=== PATIENT | female | born 1975 | race Caucasian/White ===

== ENCOUNTER 2023-04-02 10:14 | Outpatient (REF) | payer MEDICAID, SELFPAY ==
[2023-04-02 11:03] LABS: MANUAL DIFF FLAG NO
[2023-04-02 11:33] LABS: Basophils Percent Auto 0.6 % (0-2); Eosinophils Absolute Auto 0.1 X10*3/uL (0.0-0.4); Hematocrit 33.3 % (37.0-47.0); Hemoglobin 9.8 g/dl (12.0-16.0); Imm Gran Abs Auto 0.01 X10*3/uL (0.00-0.03); Imm Gran Pct Auto 0.2 % (0.0-0.4); Lymphocytes Absolute Auto 2.3 X10*3/uL (1.2-4.9); Lymphocytes Percent Auto 35.9 % (20-40); Mean Corpuscular HGB Conc 29.4 g/dl (31.0-35.0); Mean Corpuscular Hemoglobin 23.7 pg (27.0-33.0); Mean Corpuscular Volume 80.4 fL (80.0-98.0); Mean Platelet Volume 9.8 fL (9.4-12.3); Monocytes Absolute Auto 0.4 X10*3/uL (0.1-1.2); Neutrophils Absolute Auto 3.5 x10*3/uL (2.0-8.3); Neutrophils Percent Auto 55.3 % (45-73); Platelet Count 334 X10*3/uL (160-400); Red Blood Count 4.14 X10*6/uL (4.20-5.50); Red Cell Distribution Width 17.3 % (11.0-16.0); White Blood Count 6.3 X10*3/uL (4.8-10.8)
[2023-04-02 12:20] LABS: Erythrocyte Sedimentation Rate 26 MM/HR (0-20)
[2023-04-02 12:35] LABS: Alanine Aminotransferase 10 U/L (0-31); Albumin Level 4.2 g/dL (3.5-5.0); Alkaline Phosphatase 58 U/L (39-117); Anion Gap 13 (12-20); Aspartate Amino Transferase 17 U/L (5-31); Bilirubin Total 0.3 mg/dL (0.0-1.0); Blood Urea Nitrogen 12 mg/dL (9-16); Calcium 9.1 mg/dL (8.4-10.2); Carbon Dioxide 22 mmol/L (22-29); Chloride 107 mmol/L (96-108); Estimated Glomerular Filt Rate > 60; Glucose Random 82 mg/dL (60-115); Iron 18 mcg/dL (30-160); Percent Iron Saturation 5 % (15-50); Sodium 138 mmol/L (135-145); Total Iron Binding Capacity 398 mcg/dL (228-428); Total Protein 7.8 g/dL (6.5-8.0); Unsaturated Iron Binding 380 ug/dL
[2023-04-02 12:56] LABS: Rheumatoid Factor < 13.0 IU/mL (<15.0)
[2023-04-02 13:09] LABS: Vitamin B12 575 pg/mL (200-900)
[2023-04-05 14:48] LABS: Anti Nuclear Antibody Screen NEGATIVE (NEGATIVE)
[2023-04-08 13:54] LABS: VITAMIN D (1,25 OH) D3 45 pg/mL; Vit D (1,25-Dihydroxy) Total 45 pg/mL (18-72); Vitamin D (1,25 OH) D2 <8 pg/mL
== END 2023-04-02 10:15 | disposition home or self-care (01) ==
LOC: HO.HHCL 10:14
PROVIDERS: Visit Provider Emergency Medicine
DX: R42 Dizziness and giddiness (principal); M25.50 Pain in unspecified joint
CPT/HCPCS: 36415; 80053; 82607; 82652; 82746; 83540; 85025; 85652; 86038; 86431

== ENCOUNTER 2023-04-20 08:44 | Outpatient (REF) | payer MEDICAID, SELFPAY ==
[2023-04-20 11:56] LABS: Ferritin 15 ng/mL (10-250)
== END 2023-04-20 08:45 | disposition home or self-care (01) ==
LOC: HO.HHCL 08:44
PROVIDERS: Visit Provider Family Medicine
DX: D64.9 Anemia, unspecified (principal)
CPT/HCPCS: 36415; 82728

== ENCOUNTER 2023-05-11 09:57 | Outpatient (REF) | payer MEDICAID, SELFPAY ==
--- NOTE | ~2023-05-11 | MM_ITS ---
EXAMINATION: MM SCREENING DIGITAL BREAST TOMOSYNTHESIS, BILATERAL CLINICAL INFORMATION: Screening. Asymptomatic. COMPARISON: Mammography: This study is compared with prior exams dating back to 2016. TECHNIQUE: Digital breast tomosynthesis is performed in both the craniocaudal and mediolateral oblique views along with computer-aided detection (CAD). Synthesized 2D images are generated from the tomosynthesis. FINDINGS: The breasts are heterogeneously dense, which may obscure small masses (ACR BI-RADS breast composition Category c). In the upper outer quadrant of the left breast, there are grouped, faint calcifications. Some of these calcifications are vascular well others may not be. Further mammographic imaging with magnification is advised. In the right breast, there are no significant masses, abnormal calcifications, or other abnormalities. MM/MM tomosynthesis screening BI IMPRESSION: Faint, grouped calcifications of the upper outer quadrant of the left breast warrant additional mammographic imaging magnification. No mammographic signs of malignancy right breast. ASSESSMENT: BI-RADS BI-RADS 0 - Incomplete: Needs additional Imaging. RECOMMENDATION: 1. Additional views of the left breast. CC and lateral magnification imaging is advised. A full lateral view of the left breast with tomosynthesis is advised. Using tomosynthesis in the 90 degree projection can be helpful in assessing a potential vascular in origin for the calcifications. Radiology department staff will contact the patient for additional imaging. Additional Imaging required This examination should not preclude the clinical evaluation of a suspicious palpable abnormality. This patient's information was entered into a reminder system with a target due date for their next mammogram.
== END 2023-05-11 09:58 | disposition home or self-care (01) ==
LOC: HO.MAMMO 09:57
PROVIDERS: PCP Family Medicine; Visit Provider Family Medicine
DX: Z12.31 Encounter for screening mammogram for malignant neoplasm of breast (principal)
CPT/HCPCS: 77063; 77067

== ENCOUNTER → 2023-05-11 10:00 | Outpatient (BNV) | payer MEDICAID, SELFPAY | PROVIDERS: PCP Family Medicine; Visit Provider Radiology Diagnostic Radiology | DX: Z12.31 Encounter for screening mammogram for malignant neoplasm of breast (principal) | CPT/HCPCS: 77063; 77067 ==

== ENCOUNTER 2023-06-11 08:40 | Outpatient (REF) | payer MEDICAID, SELFPAY ==
--- NOTE | ~2023-06-11 | MM_ITS ---
EXAMINATION: MM DIAGNOSTIC DIGITAL BREAST TOMOSYNTHESIS, LEFT CLINICAL INFORMATION: Evaluate calcifications seen on screening mammography left breast upper outer quadrant. COMPARISON: Mammography: 05/11/2023, 04/13/2019, 09/04/2015. TECHNIQUE: Digital breast tomosynthesis is performed including 2-D spot magnification views of the left breast in the CC x2, and ML x3 positions. In addition, full-field left 90 degree 3-D digital image was obtained. FINDINGS: The breasts are heterogeneously dense, which may obscure small masses (ACR BI-RADS breast composition Category c). There are several small groups of very faint punctate calcifications in the left breast outer quadrant, with tiny groups noted anterior one third, mid one third, and a more significant grouping in the posterior one third upper outer quadrant. The anterior and middle thirds groups have benign features and may have been present on prior exams. Six-month follow-up recommended for these 3 groups. The larger group posteriorly in the outer upper quadrant of the left breast has mild pleomorphic forms with linear forms which do not appear to be vascular i.e. no transient tracking seen. These could be ductal. A few layering calcifications are seen suggesting milk of calcium. Despite this, given the linear possible ductal forms, stereotactic biopsy is recommended of this group. (Refer to the labeled images). Otherwise, six-month follow-up recommended for the anterior and mid groups. MM/MM tomosynthesis diagnostic LT IMPRESSION: Several groups of calcifications in the left breast predominantly outer quadrant as detailed above. Stereotactic biopsy recommended for the posterior most upper outer group, which is also the largest, with possible ductal forms. 6 month interval follow-up recommended of small benign appearing groups in the mid and anterior one third of the left breast, outer quadrant. These may have been present previously and have benign features. Findings and recommendations were discussed with the patient in detail with the assistance of a interpreter. ASSESSMENT: BI-RADS BI-RADS 4 - Suspicious finding RECOMMENDATION: Biopsy recommended Results were provided to the patient at time of visit by the technologist. This patient's information was entered into a reminder system with a target due date for their next mammogram.
== END 2023-06-11 08:41 | disposition home or self-care (01) ==
LOC: HO.MAMMO 08:40
PROVIDERS: PCP Family Medicine; Visit Provider Family Medicine
DX: R92.1 Mammographic calcification found on diagnostic imaging of breast (principal)
CPT/HCPCS: 77061; 77065

== ENCOUNTER → 2023-06-11 09:00 | Outpatient (BNV) | payer MEDICAID, SELFPAY | PROVIDERS: PCP Family Medicine; Visit Provider Radiology Diagnostic Radiology | DX: R92.1 Mammographic calcification found on diagnostic imaging of breast (principal) | CPT/HCPCS: 77061; 77065 ==

== ENCOUNTER 2023-06-14 08:16 | Outpatient (AMB) | payer MEDICAID, SELFPAY ==
[2023-06-14 08:27] VITALS: BP 130/69; PULSE 76; BMI 25.7
--- NOTE | 2023-06-14 08:27 | A.OFFVIS_ITS ---
Intake Vital Signs 06/14/23 08:27 Height 5 ft 3 in Weight 145 lb BMI 25.7 BP 130/69 Blood Pressure Location Rt brachial Position Sitting Pulse 76 Intake Visit Reasons: stereo Bx Lt breast calcs Intake Note: Patient referred for stereo bx for Lt breast calcifications on mammo. Denies bumps, lumps, redness, itch. No personal or family hx of breast ca. Cigar Tobacco Rehandler Required: No Accompanied by: Self / Same As Patient Allergies No Known Allergies Allergy (Mild, Unverified 06/14/23 08:30) NONE Medication List - Last Reconciled 06/14/23 by Santo Chavez MD ferrous sulfate 325 mg PO DAILY HPI HPI Comments History of Present Illness Details Patient presents for surgical evaluation for left breast microcalcifications stereotactic biopsy. Patient screening mammograms which demonstrate a several collections of microcalcifications. A posterior collection was suspicious and recommendation is for stereotactic biopsy per radiology Patient self has no breast issues or complaints. She denies any mass, discharge, skin changes or other breast symptoms. Family history negative breast cancer. PFSH Surgical History (Updated 06/14/23 @ 08:40 by Santo Chavez MD) Hx of section Family History (Updated 06/14/23 @ 08:33 by JAYDA House) Father Prostate CA Social History (Updated 06/14/23 @ 08:33 by JAYDA House) Alcohol intake: never Patient Tobacco Use Status: Never used Tobacco Physical Exam Vital Signs: Last Vital Signs Pulse 76 06/14/23 08:27 BP 130/69 06/14/23 08:27 BMI result Body Mass Index 25.7 Chest Other: Breast exam demonstrates no obvious mass discharge adenopathy or skin changes bilaterally. No cervical periclavicular or axillary adenopathy bilaterally. GI Other: Abdomen mildly corpulent, soft, benign Assessment & Plan Assessment & Plan (1) Microcalcification of left breast on mammogram: Code(s): R92.0 - Mammographic microcalcification found on diagnostic imaging of breast Plan: Patient is tentatively scheduled for stereotactic biopsy of left posterior microcalcifications for tomorrow. Patient will see me in proximal week [place] for follow-up. All questions were answered. Orders: Orders MM stereotactic biopsy LT 06/15/23 R92.0 - Mammographic microcalcification found on diagnostic imaging of breast Coding Level of Care Code New Pt Level 4 (32643) Diagnoses Microcalcification of left breast on mammogram R92.0
== END 2023-06-14 08:41 | disposition home or self-care (01) ==
PROVIDERS: PCP Family Medicine; Visit Provider Surgery
DX: R92.0 Mammographic microcalcification found on diagnostic imaging of breast (principal)
CPT/HCPCS: 99204

== ENCOUNTER → 2023-06-14 08:16 | Outpatient (BNVA) | payer MEDICAID, SELFPAY | PROVIDERS: PCP Family Medicine; Visit Provider Surgery | DX: R92.0 Mammographic microcalcification found on diagnostic imaging of breast (principal) | CPT/HCPCS: 99202 ==

== ENCOUNTER 2023-06-15 09:44 | Outpatient (REF) | payer MEDICAID, SELFPAY ==
--- NOTE | ~2023-06-15 | MM_ITS ---
EXAMINATION: STEREOTACTIC TOMOSYNTHESIS-GUIDED VACUUM-ASSISTED BREAST BIOPSY, LEFT SPECIMEN RADIOGRAPH, LEFT POST PROCEDURE DIGITAL MAMMOGRAM, LEFT CLINICAL INFORMATION: Suspicious calcifications upper outer left breast for stereotactic biopsy. COMPARISON: 06/11/2023, 05/11/2023. TECHNIQUE/PROCEDURE: Informed consent was obtained from the patient after discussion of the benefits, risks, and alternatives to biopsy today. Patient appeared to understand. Gave opportunity for questions. Patient signed consent form. BIOPSY TABLE: [employer] Affirm Prone Biopsy System. LESION: Microcalcifications, some with linear forms. Grouped and extremely subtle. LOCAL ANESTHESIA: 5 mL 1% lidocaine; 10 mL 1% lidocaine with epinephrine. DERMATOTOMY: Single skin fausto dermatotomy performed. NEEDLE: [employer] Eviva 9-gauge vacuum assisted core biopsy device. APPROACH: craniocaudal. TARGETING: Combination of digital breast tomosynthesis and stereotactic digital mammography used for targeting. CORES: 7. CLIP: [employer] Cylinder-shaped marker. SPECIMEN RADIOGRAPH: Specimen radiograph is taken in separate room using digital mammography. The index calcifications are in the excised cores. POST PROCEDURE UNILATERAL DIGITAL MAMMOGRAM: The post biopsy mammogram is performed in separate room using separate digital mammography equipment from the biopsy procedure. CC and 90 degree ML views are obtained. The breasts are heterogeneously dense, which may obscure small masses (breast composition category: c). The clip marker is in accurate position. The calcifications are markedly decreased at the biopsy site. No gross hematoma. The patient tolerated the procedure well. No immediate complications. Home instructions reviewed with the patient. Final pathology results are pending. MM/MM stereotactic biopsy LT IMPRESSION: 1. Digital tomosynthesis-guided core biopsy left breast suspicious calcifications with clip placement. 2. Specimen radiograph taken and post procedure mammogram. There is satisfactory and accurate positioning of the biopsy clip. 3. Final pathology results pending. An addendum report will be issued.
[2023-06-15] MEDS: Lidocaine HCl 1 % 20 ML VIAL 4 ML SUBCUT (14:38)
[2023-06-15] MEDS: Lidocaine HCl 1%/Epi 1:100,000 10 ML VIAL 18 ML SUBCUT (14:40)
[2023-06-15] MEDS: Sodium Bicarbonate 8.4% 50 MEQ/50 ML VIAL SUBCUT (14:41)
== END 2023-06-15 09:45 | disposition home or self-care (01) ==
LOC: HO.MAMMO 09:44
PROVIDERS: PCP Family Medicine; Visit Provider Surgery
DX: R92.0 Mammographic microcalcification found on diagnostic imaging of breast (principal)
CPT/HCPCS: 19081; 88305; A4648

== ENCOUNTER → 2023-06-15 10:00 | Outpatient (BNV) | payer MEDICAID, SELFPAY | PROVIDERS: PCP Family Medicine; Visit Provider Radiology Diagnostic Radiology | DX: R92.0 Mammographic microcalcification found on diagnostic imaging of breast (principal) | CPT/HCPCS: 19081 ==

== ENCOUNTER 2023-06-22 08:57 | Outpatient (AMB) | payer MEDICAID, SELFPAY ==
[2023-06-22 09:02] VITALS: BP 132/63; PULSE 81; BMI 25.9
--- NOTE | 2023-06-22 09:02 | A.OFFVIS_ITS ---
Intake Vital Signs 06/22/23 09:02 Height 5 ft 3 in Weight 146 lb 6.191 oz BMI 25.9 BP 132/63 Blood Pressure Location Rt brachial Position Sitting Pulse 81 Intake Visit Reasons: S/p stereo Bx Lt breast calcs Intake Note: Patient here to discuss Lt breast stereo bx. Bx performed on 06-15-23. Reports incision healing well. Denies pain, oozing, itch. Lime Kiln Tender Required: No Accompanied by: Spouse Allergies No Known Allergies Allergy (Mild, Unverified 06/22/23 09:03) NONE Medication List - Last Reconciled 06/22/23 by Santo Chavez MD ferrous sulfate 325 mg PO DAILY HPI HPI Comments History of Present Illness Details Patient presents status post stereotactic biopsy left. Pathology results demonstrate flat epithelial atypia. I reviewed these results with Dr. Marroquin, pathology. This requires lumpectomy. Patient has no post biopsy issues or complaints. She presents here with her . PFSH Surgical History Hx of section Family History Father Prostate CA Social History Alcohol intake: never Patient Tobacco Use Status: Never used Tobacco Physical Exam Vital Signs: Last Vital Signs Pulse 81 06/22/23 09:02 BP 132/63 06/22/23 09:02 BMI result Body Mass Index 25.9 Chest Other: Chest sounds bilaterally, HS 1 and 2. Breast exam bilateral within normal limits. Biopsy site clean dry and intact. GI Other: Abdomen soft, benign Assessment & Plan Assessment & Plan (1) Microcalcification of left breast on mammogram: Code(s): R92.0 - Mammographic microcalcification found on diagnostic imaging of breast Plan: Risks, benefits, alternatives of localized or placement followed by lumpectomy were reviewed with the patient and her and included but not limited to bleeding, infection, recurrence, requirement for re-excision, numbness, pain, scarring, seroma formation and the patient was to proceed. All questions were answered. Arrangements were made for this I day which is convenient for her. Orders: Orders MM needle loc LT Today R92.0 - Mammographic microcalcification found on diagnostic imaging of breast Coding Level of Care Code Est Pt Level 5 (27270) Diagnoses Microcalcification of left breast on mammogram R92.0
== END 2023-06-22 09:17 | disposition home or self-care (01) ==
PROVIDERS: PCP Family Medicine; Visit Provider Surgery
DX: R92.0 Mammographic microcalcification found on diagnostic imaging of breast (principal)
CPT/HCPCS: 99214

== ENCOUNTER → 2023-06-22 08:57 | Outpatient (BNVA) | payer MEDICAID, SELFPAY | PROVIDERS: PCP Family Medicine; Visit Provider Surgery | DX: R92.0 Mammographic microcalcification found on diagnostic imaging of breast (principal) | CPT/HCPCS: 99212 ==

== ENCOUNTER 2023-06-30 07:48 | Outpatient (REF) | payer MEDICAID, SELFPAY ==
--- NOTE | ~2023-06-30 | MM_ITS ---
EXAMINATION: MM MAMMOGRAM GUIDED RFID LOCALIZATION BREAST, LEFT CLINICAL INFORMATION: Left upper outer flat epithelial atypia found on stereotactic biopsy of calcifications. A few extremely faint residual calcifications remain. COMPARISON: None TECHNIQUE NEEDLE LOC: Proper informed consent is obtained from the patient after discussion of the procedure, potential risks and complications, and alternatives including declining the procedure today. Patient was given an opportunity for questions. The patient appeared to understand. The patient consented to the procedure and signed the consent form. GUIDANCE: Digital mammography. APPROACH: Cranio-caudal. TARGET: Cylinder-shaped clip and calcifications. ANESTHESIA: carbonated lidocaine 1%: 4 mL. LOCALIZATION SYSTEM: -[employer] LOCallizer Wire-Free Guidance System with 12g needle applicator. -Length: 7 cm. -RADIOFREQUENCY TAG: ID # [id number] DERMATOTOMY: Not required. RF Tag ID confirmed with LOCalizer Guidance System prior to placement. The skin is prepped and local anesthesia administered. The needle is positioned and RFID tag deployed. Final images demonstrate the LOCalizer RF tag to reside completely obscured by the RF ID tag on the mediolateral projection, however approximately 5 mm posteromedial to the cylinder clip on the CC projection. The index calcifications, and cylinder clip were marked clearly on the final 2 CC and ML images. Please refer to these during OR procedure. The patient tolerated the procedure well and had no immediate complications. Dressing placed and home instructions reviewed. MM/MM needle loc LT IMPRESSION: -Status post left breast RFID localization. -The index calcifications, and cylinder clip were marked clearly on the final 2 CC and ML images. Please refer to these during OR procedure.
[2023-06-30] MEDS: Sodium Bicarbonate 8.4% 50 MEQ/50 ML VIAL SUBCUT (08:59)
[2023-06-30] MEDS: Lidocaine HCl 1 % 20 ML VIAL 9 ML SUBCUT (09:01)
== END 2023-06-30 07:49 | disposition home or self-care (01) ==
LOC: HO.MAMMO 07:48
PROVIDERS: PCP Family Medicine; Visit Provider Surgery
DX: R92.0 Mammographic microcalcification found on diagnostic imaging of breast (principal)
CPT/HCPCS: 19281; C1819

== ENCOUNTER 2023-07-08 06:32 | Day surgery (SDC) | payer MEDICAID, SELFPAY ==
[2023-07-05 14:18] VITALS: BMI 25.9
--- NOTE | 2023-07-07 09:22 | HO.ANESPROP2 ---
Documented by User: Sindhu Bauer NP 07/07/23 09:22 HPI - Anesthesia Eval Consult details Narrative: 48yo F for Left Breast Lumpectomy w/LOCalizer,Mag Trace PMFSH Active Problems Active Problems: All Active Problems (Updated 06/14/23 @ 08:40 by Santo Chavez MD) Microcalcification of left breast on mammogram (Acute) Family History Family History Father Prostate CA Surgical History Surgical History Hx of section Social History Social History Alcohol intake: never Patient Tobacco Use Status: Never used Tobacco Use of substances other than those prescribed or required for medical reasons: No Are you DNR?: No Advance Directives: No Advance Directives Information Provided: Yes Meds Allergies Allergy/AdvReac Type Severity Reaction Status Date / Time No Known Allergies Allergy Mild NONE Unverified 06/22/23 09:03 Home Medications Medication Instructions Recorded Confirmed Last Taken Type ferrous sulfate 325 mg (65 mg 325 mg PO DAILY 06/14/23 Unknown History iron) tablet Exam Height,Weight and Vital Signs: Height 5 ft 3 in Weight 66.224 kg Pertinent Lab Results Pertinent Lab Results: Laboratory Tests 04/02/23 10:21 WBC 6.3 Hgb 9.8 L Hct 33.3 L Plt Count 334 Sodium 138 Potassium 4.0 Chloride 107 Carbon Dioxide 22 BUN 12 Creatinine 0.79 Assessment and Plan Assessment Anesthesia Assessment: Chart Reviewed Documented by User: Hudson Raman MD 07/08/23 07:22 PMFSH Family History Family History Father Prostate CA Family history of problems with anesthesia: No Surgical History Surgical History Hx of section History of Problems with Anesthesia: No Social History Social History Alcohol intake: never Patient Tobacco Use Status: Never used Tobacco Use of substances other than those prescribed or required for medical reasons: No Are you DNR?: No Advance Directives: No Advance Directives Information Provided: Yes Meds Allergies Allergy/AdvReac Type Severity Reaction Status Date / Time No Known Allergies Allergy Mild NONE Unverified 06/22/23 09:03 Home Medications Medication Instructions Recorded Confirmed Last Taken Type ferrous sulfate 325 mg (65 mg 325 mg PO DAILY 06/14/23 Unknown History iron) tablet Exam Airway Mallampati Class: III TM Dist: >3cm Neck ROM: Full Assessment and Plan Assessment Anesthesia Assessment: Anesthesia Plan Discussed Final Anesthetic Review Family History of Problems with Anesthesia: No History of Problems with Anesthesia: No NPO: Yes ASA Class: II Final Preanesthetic Review: No Changes in Pt Med Stat, Meds/Allgs Chart Reviewed, Consent Obtained/Reviewed and Anes Risks/Benef Reviewed Patient Risk: Low Procedure Risk: Low Anesthetic Plan Anesthetic Plan: GA Disposition: Standard PACU
--- NOTE | 2023-07-07 13:55 | MHC.SHP ---
Pre-Procedural Eval Section A Date of Service: 07/07/23 The patient is an INPATIENT: No Changes since office visit: No Cold of Flu in the past 2 weeks, No New Medical Problems, No Changes in Medication and No Patient answered all questions The History & Physical has been completed within 30 days and I have reviewed it.: Yes Section B Chief Complaint: Mammographic microcalcification found on diagnosti Allergies: Allergies Allergy/AdvReac Type Severity Reaction Status Date / Time No Known Allergies Allergy Mild NONE Unverified 06/22/23 09:03 Plan I have reviewed the history and physical and performed a pertinent physical examination on my patient. No changes have occurred unless specified. Time Spent With Patient Time: Total time managing care of this patient today ____ minutes.
[2023-07-08] VITALS (12 sets, daily range): BP systolic 101–123; BP diastolic 56–74; PULSE 63–74; RESP 16–18; TEMP 36.2–36.7; O2SAT 99–100; BMI 26.4
--- NOTE | ~2023-07-08 | MM_ITS ---
EXAMINATION: RFID LOCALIZATION SPECIMEN FROM THE LEFT BREAST CLINICAL INFORMATION: Flat epithelial atypia found on stereotactic biopsy of left breast upper slightly outer quadrant. COMPARISON: Localization dated 06/30/2023. TECHNIQUE: Single radiograph of the specimen was obtained. FINDINGS: The radiograph of the excised surgical specimen shows that the RFID chip, cylinder biopsy clip, and the residual calcifications are contained centrally within the specimen. MM/MM surgical specimen IMPRESSION: Satisfactory excision of RFID chip, biopsy clip, and residual calcifications. These findings were communicated to the surgeon in the OR at the time of specimen radiography.
[2023-07-08 07:21] LABS: UPreg QC Valid YES; Urine Pregnancy NEGATIVE (NEGATIVE)
[2023-07-08] MEDS: Lactated Ringers 1,000 ML 100 ML IVCONT (07:31)
--- NOTE | 2023-07-08 09:10 | W.PM.OPN ---
Operative Note Operative Note Date of Service: 07/08/23 Narrative: Preoperative diagnosis: []Upper outer quadrant suspicious breast biopsy Postop diagnosis: [] same Procedure [] lumpectomy with localizer upper outer quadrant left breast, injection of sentinel lymph node tracer for possible lymph node biopsy in future Surgeon: [] Scott Professor Of Business: [] Vincenzo Type of Anesthesia: [] general Indication for surgery: [] atypical upper outer quadrant stereotactic breast biopsy findings. Left lumpectomy specimen confirmed in postprocedure mammogram. Findings: [] Patient brought to the operating room, placed on table supine position, after adequate level of general anesthesia was induced, patient underwent injection of sentinel lymph no tracer uneventfully under sterile technique. Left breast was then massaged for 5 minutes and the left breast and axilla were prepped and draped in usual sterile fashion. Using the localizer device, incision was made in the upper outer quadrant the curvilinear fashion and carried down through skin, subcutaneous tissue were superior and inferior skin flaps or uneventfully developed. Using the localizer, very generous circumferential excision of the specimen in question was uneventfully performed. Specimen passed off and evaluated by in the room mammogram device and confirmed. Wound was irrigated, secured hemostasis. Was closed using interrupted inverted dermal 3-0 Vicryl sutures followed by Steri-Strips and sterile dressings. [place] lymph node probe was used to identify activity in the left axilla which was accomplished. If in the future patient require sentinel lymph node sampling, this can be easily accomplished. Sponge, needle, and instrument counts reported correct. Patient tolerated the procedure well and emerged anesthesia stable condition. EBL minimal
[2023-07-08] MEDS: Ondansetron ODT 4 MG TAB.RAPDIS TRANSLINGU ×2 (10:04→10:24)
== END 2023-07-08 11:50 | disposition home or self-care (01) ==
PROVIDERS: Nurse Practitioner; PCP Family Medicine; Visit Provider Surgery
PROC: (CPT 19301; principal; 2023-07-08 07:30)
DX: R92.0 Mammographic microcalcification found on diagnostic imaging of breast (principal); N64.89 Other specified disorders of breast; N60.42 Mammary duct ectasia of left breast; Z79.899 Other long term (current) drug therapy; Z98.890 Other specified postprocedural states
CPT/HCPCS: 19301; 81025; 88307; 88329; J0690; J1100; J1170; J2250; J2371; J2405; J2550; J2704; J2795

== ENCOUNTER → 2023-07-08 06:32 | Outpatient (BNV) | payer MEDICAID, SELFPAY | PROVIDERS: PCP Family Medicine; Visit Provider Surgery | DX: R92.0 Mammographic microcalcification found on diagnostic imaging of breast (principal) | CPT/HCPCS: 19301; 38792 ==

== ENCOUNTER 2023-07-19 09:41 | Outpatient (AMB) | payer MEDICAID, SELFPAY ==
--- NOTE | 2023-07-19 09:45 | A.OFFVIS_ITS ---
Intake Vital Signs 07/19/23 09:51 Weight 147 lb BP 115/63 Blood Pressure Location Rt brachial Position Sitting Pulse 79 Intake Visit Reasons: S/P Lt. breast lumpectomy w/localizer Intake Note: This patient presents for a post-op assessment status post left breast lumpectomy with localizer. Patient c/o; reports no complaints at this time. Social Services Counselor Required: Yes Social Services Counselor Language: Divehi Accompanied by: Spouse Allergies No Known Allergies Allergy (Mild, Unverified 07/19/23 09:52) NONE HPI HPI Comments History of Present Illness Details Patient presents for follow-up with her . She has no wound issues or complaints aside from resolving incisional discomfort. Pathology is benign [facility] Surgical History History of lumpectomy of left breast (~07/08/23) Hx of section Family History Father Prostate CA Social History Alcohol intake: never Comment: COUNTS CORRECT Patient Tobacco Use Status: Never used Tobacco Physical Exam Vital Signs: Last Vital Signs Pulse 79 07/19/23 09:51 BP 115/63 07/19/23 09:51 Chest Other: Breast wound clean dry and intact healing very well. Assessment & Plan Assessment & Plan (1) Microcalcification of left breast on mammogram: Code(s): R92.0 - Mammographic microcalcification found on diagnostic imaging of breast Plan Patient has been given local instructions including avoiding strenuous activities, to wear supportive bra, patient was seen in 6 months time. Preceded by post surgery mammogram. All questions were answered. Coding Level of Care Code Global (62671) Diagnoses Microcalcification of left breast on mammogram R92.0
[2023-07-19 09:51] VITALS: BP 115/63; PULSE 79
== END 2023-07-19 10:02 | disposition home or self-care (01) ==
PROVIDERS: PCP Family Medicine; Visit Provider Surgery
DX: R92.0 Mammographic microcalcification found on diagnostic imaging of breast (principal)
CPT/HCPCS: 99024

== ENCOUNTER → 2023-07-19 09:41 | Outpatient (BNVA) | payer MEDICAID, SELFPAY | PROVIDERS: PCP Family Medicine; Visit Provider Surgery | DX: R92.0 Mammographic microcalcification found on diagnostic imaging of breast (principal) | CPT/HCPCS: 99212 ==

== ENCOUNTER 2023-12-10 12:43 | Outpatient (REF) | payer MEDICAID, SELFPAY ==
--- NOTE | ~2023-12-10 | MM_ITS ---
EXAMINATION: MM DIAGNOSTIC DIGITAL BREAST TOMOSYNTHESIS, LEFT CLINICAL INFORMATION: 6 month follow-up for calcifications left breast. Lumpectomy left breast upper outer quadrant posterior depth 07/08/2023. COMPARISON: Mammography: Localization dated 06/30/2023. Stereotactic biopsy dated 06/15/2023, diagnostic mammography 06/11/2023. Screening mammography 04/13/2019. TECHNIQUE: Digital breast tomosynthesis is performed in both the craniocaudal and mediolateral oblique views along with computer-aided detection (CAD). Synthesized 2D images are generated from the tomosynthesis. In addition, full-field 3-D left mediolateral view was obtained, as well as 2-D spot magnification left CC and left ML views x2. FINDINGS: The breasts are heterogeneously dense, which may obscure small masses (ACR BI-RADS breast composition Category c). Post lumpectomy changes are noted in the posterior upper outer left breast with associated surgical scarring. This is new from 07/08/2023. Several small groups of very faint punctate stable and unchanged calcifications present in the left breast outer quadrant, with tiny groups noted anterior one third and middle one third. The anterior and middle thirds groups again have benign features and may have been present on prior exams. Six-month follow-up recommended for these 2 groups. No developing masses, or developing regions of architectural distortion are noted in the left breast which can be distinguished from the heterogeneously dense parenchyma. No axillary abnormalities. MM/MM tomosynthesis diagnostic LT IMPRESSION: No findings suspicious for malignancy in the left breast. New post lumpectomy changes far upper outer left breast. Otherwise stable small groups of faint punctate calcifications, probably benign. Recommend six-month interval follow-up left magnification views when the patient is due for bilateral screening. ASSESSMENT: BI-RADS BI-RADS 3 - Probably benign finding(s) - 6 month follow-up suggested RECOMMENDATION: 6 Month F/U Results were provided to the patient at time of visit by the technologist. This patient's information was entered into a reminder system with a target due date for their next mammogram.
== END 2023-12-10 12:44 | disposition home or self-care (01) ==
LOC: HO.MAMMO 12:43
PROVIDERS: PCP Family Medicine; Visit Provider Family Medicine
DX: R92.1 Mammographic calcification found on diagnostic imaging of breast (principal)
CPT/HCPCS: 77061; 77065

== ENCOUNTER → 2023-12-10 12:46 | Outpatient (BNV) | payer MEDICAID, SELFPAY | PROVIDERS: PCP Family Medicine; Visit Provider Radiology Diagnostic Radiology | DX: R92.1 Mammographic calcification found on diagnostic imaging of breast (principal) | CPT/HCPCS: 77061; 77065 ==

== ENCOUNTER 2024-02-07 18:32 | Emergency (ER) | payer MEDICAID, SELFPAY ==
[2024-02-07 18:38] VITALS: BP 110/62; PULSE 78; RESP 16; TEMP 36.9; O2SAT 100; BMI 26.2
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
[2024-02-07] MEDS: Bacitracin Oint 0.9 GM PACKET 1 APPL TOPICAL (19:16)
[2024-02-07 19:17] VITALS: BP 119/58; PULSE 76; RESP 16; TEMP 36.7; O2SAT 100
== END 2024-02-07 19:21 | disposition home or self-care (01) ==
LOC: HO.ED 19:18
PROVIDERS: Emergency Provider Internal Medicine
DX: T22.211A Burn of second degree of right forearm, initial encounter (principal); T31.0 Burns involving less than 10% of body surface; M79.601 Pain in right arm; T79.2XXA Traumatic secondary and recurrent hemorrhage and seroma, initial encounter; X15.8XXA Contact with other hot household appliances, initial encounter; Y93.G3 Activity, cooking and baking; Y92.000 Kitchen of unspecified non-institutional (private) residence as the place of occurrence of the external cause; Y99.8 Other external cause status
CPT/HCPCS: 16025; 99282; 99283; 99284

== ENCOUNTER 2024-07-27 13:33 | Outpatient (REF) | payer MEDICAID, SELFPAY ==
--- NOTE | ~2024-07-27 | MM_ITS ---
EXAMINATION: MM DIAGNOSTIC DIGITAL BREAST TOMOSYNTHESIS, BILATERAL CLINICAL INFORMATION: History of left breast wax epithelial atypia from biopsy of calcifications status post excisional biopsy. Follow-up for left breast upper outer calcifications which are faint from diagnostic imaging dating back to May 2023. COMPARISON: Mammography: Comparison is made with relevant prior exams. TECHNIQUE: Digital breast mammography with tomosynthesis is performed in both the craniocaudal and mediolateral oblique views along with computer-aided detection (CAD). FINDINGS: The breasts are extremely dense, which lowers the sensitivity of mammography (ACR BI-RADS breast composition Category d). Faint scattered grouped calcifications in the upper outer quadrant are not significantly changed from prior. Excisional biopsy changes. There are no significant masses, abnormal calcifications, or other abnormalities. Results are provided to the patient at time of visit by the technologist. MM/MM tomosynthesis diagnostic BI IMPRESSION: Right: Negative. Left: Status post excisional biopsy changes. Faint calcifications which are scattered and grouped right upper outer quadrant are not significantly changed from prior magnification views dating back to June 2023 recommend one year follow up diagnostic mammogram with (dictation views to demonstrate 2 years of stability. ASSESSMENT: BI-RADS BI-RADS 3 - Probably benign finding(s) - 12 month follow-up suggested RECOMMENDATION: 12 month diagnostic follow up This patient's information was entered into a reminder system with a target due date for their next mammogram. Electronically signed by: Martha Sales DO 07/27/2024 02:32 PM JAMES
== END 2024-07-27 13:34 | disposition home or self-care (01) ==
LOC: HO.MAMMO 13:33
PROVIDERS: PCP Family Medicine; Visit Provider Family Medicine
DX: R92.0 Mammographic microcalcification found on diagnostic imaging of breast (principal); R92.333 Mammographic heterogeneous density, bilateral breasts
CPT/HCPCS: 77062; 77066

== ENCOUNTER → 2024-07-27 14:00 | Outpatient (BNV) | payer MEDICAID, SELFPAY | PROVIDERS: PCP Family Medicine; Visit Provider Internal Medicine | DX: R92.0 Mammographic microcalcification found on diagnostic imaging of breast (principal); R92.343 Mammographic extreme density, bilateral breasts | CPT/HCPCS: 77062; 77066 ==

== ENCOUNTER 2024-10-24 16:17 | Outpatient (REF) | payer MEDICAID, SELFPAY ==
[2024-10-24 17:18] LABS: Appearance Urine Clear; Color Urine Yellow; Glucose Urine UA Negative (Negative); Leukocyte Esterase Urine Negative (Negative); Nitrite Urine Negative (Negative); PH 5.5 (5.0-9.0); Urine Blood Negative (Negative); Urine Ketones Negative (Negative); Urine Protein Negative (Neg-Trace)
[2024-10-24 17:20] LABS: Bacteria Urine Trace (None Seen); Hyaline Casts Urine 0-2 /LPF (0-2); RBC Urine 0-2 /HPF (0-2); WBC Urine 0-5 /HPF (0-5)
[2024-10-25 11:16] LABS: Bacterial Vaginosis PCR NEGATIVE (Negative); Candida Group PCR NOT DETECTED (Not Detect); Candida glab krusei PCR NOT DETECTED (Not Detect); Trichomonas vaginalis PCR NOT DETECTED (Not Detect)
== END 2024-10-24 16:18 | disposition home or self-care (01) ==
LOC: HO.HHCLNP 16:17
PROVIDERS: Visit Provider Internal Medicine Geriatric Medicine
DX: R10.2 Pelvic and perineal pain (principal); R30.0 Dysuria
CPT/HCPCS: 81001; 81515

== ENCOUNTER 2024-11-07 10:32 | Outpatient (REF) | payer MEDICAID, SELFPAY ==
--- OUTSIDE RECORDS SUMMARY | 2024-11-07 12:28 | XMS_ITS | Encounter Summary ---
Author Organization [employer] Address [address] [place] [address] Care Team Providers Care Per Diem Clerk Name Role Phone JahJackelin tyson Primary Care Provider + [phone] Reason for Visit * Reason Comments Annual Exam Encounter Details Date Type Department Care Team ([facility] st Contact Info) Description 11/07/2024 9:30 AM EDT Office Visit [facility] [address] [place] [address] Ivonne López MD [address] [place] [address] Encounter for preventive care (Primary Dx); Tuberculosis screening; Screening for colon cancer; Encounter for immunization Social History Tobacco Use Types Packs/Day Years Used Date Smoking Tobacco: Never Smokeless Tobacco: Never Tobacco Cessation:Counseling Given: Not Answered Depression Answer Date Recorded Patient Health Questionnaire-9 Score 0 11/07/2024 Patient Health Questionnaire-9 Score 0 11/07/2024 Last PHQ-9: Questionnaire Data Not on file 0 11/07/2024 Housing Stability Answer Date Recorded What is your housing situation today? I have jorge luis foster 11/07/[address] you li ve. Do you have problems with any of the following? None of the above 11/07/2024 Food Insecurity Answer Date Recorded Within the past 12 months, y ou worried that your food would run out before you got money to buy more: Never True 11/07/2024 Within the past 12 months,th e food you bought just didn't last and you didn't have enough money to get more: Never True 08/2024 Transportation Answer Date Recorded In the past 12 months, has l ack of transportation kept you from medical appts, meetings, work or from getting things needed for daily living? No 11/07/2024 Utilities Answer Date Recorded In the past 12 months, has t he electric, gas, oil or water company threatened to shut off services in your home? No 11/07/2024 Depression Answer Date Recorded Patient Health Questionnaire-2 Score 0 11/07/2024 Internet Access Answer Date Recorded Internet Access Q1 Yes 11/07/2024 Internet Access Q2 Not on file 11/07/2024 Comments Unknown Sex and Gender Information Value Date Recorded Sex Assigned at Female 06/08/2022 10:18 AM EDT Legal Sex Female 10:18 AM EDT Gender Identity Female 04/02/2023 9:08 AM EDT Sexual Orientation Straight 06/08/2022 10 :18 AM EDT documented as of this encounter Last Filed Vital Signs Vital Sign Reading Time Taken Comments Blood Pressure 106/73 11/07/2024 9:44 AM EDT Pulse 72 11/07/2024 9:44 AM EDT Temperature 36.1 ??C (97 ??F) 11/07/2024 9:44 AM EDT Respiratory Rate 18 11/07/2024 9:44 AM EDT Oxygen Saturation 100% 11/07/2024 9:44 AM EDT Inhaled Oxygen Concentration - - Weight 63.2 kg (139 lb 6.4 oz) 11/07/2024 9:44 A M EDT Height 162.6 cm (5' 4 ) 11/07/2024 9:44 AM EDT Body Mass Index 23.93 11/07/2024 9:44 AM EDT documented in this encounter Progress Notes * Ivonne Schwarz MD - 11/07/2024 9:30 AM EDT SUBJECTIVE: Lyubov Haq is a 49 y.o. year old female who presents for Physical . 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 Diet:regular Exercise:sedentary LMP:10/31/24 regular Pap Smear:Patient will be schedule for next PAP smear Mammogram next one due on 07/27/2025 Colonoscopy: I will order cologuard today Hospitalizations/Surgeries: 2 c-sections Eye Care:up to date Dental Care:Patient will set up her appointment PMHx:see below FMHx:none Immunizations: Reviewed today PCV20 and Tdap, shingrix at the pharmacy Acute Concerns: None Social History Social History Narrative Not on file Patient Active Problem List Diagnosis Anemia Vitamin D deficiency Viral upper respiratory tract infection Encounter for preventive care Tuberculosis screening No family history on file. Review of Systems Constitutional: Negative. HENT: Negative. Respiratory: Negative. Cardiovascular: Negative. OBJECTIVE: Vitals: 11/07/24 0944 BP: 106/73 BP Location: Left arm Patient Position: Sitting BP Cuff Size: Adult Pulse: 72 Resp: 18 Temp: 97 ??F (36.1 ??C) TempSrc: Temporal SpO2: 100% Weight: 139 lb 6.4 oz (63.2 kg) Height: 5' 4 (1.626 m) Physical Exam Constitutional: Appearance: Normal appearance. Cardiovascular: Rate and Rhythm: Normal rate and regular rhythm. Pulmonary: Effort: Pulmonary effort is normal. Breath sounds: Normal breath sounds. Abdominal: General: Abdomen is flat. Palpations: Abdomen is soft. Neurological: Mental Status: She is alert. Follow Up: No follow-ups on file. Current Outpatient Medications on File Prior to Visit Medication Sig Dispense Refill albuterol 108 (90 Base) MCG/ACT inhaler Inhale 2 puffs every 4 (four) hours if needed. cholecalciferol (Vitamin D-3) 50 MCG (1999 UT) capsule Take 1 capsule (50 mcg) by mouth in the morning. 30 capsule 11 Elastic Bandages & Supports (Wrist Splint/Cock-Up/Left L) misc use nightly as directed-RIGHT Elastic Bandages & Supports (Wrist Splint/Elastic Right Med) misc use nightly as directed-LEFT ferrous gluconate (Fergon) 324 (37.5 Fe) MG tablet Take 1 tablet (324 mg) by mouth with breakfast. 90 tablet 1 No current facility-administered medications on file prior to visit. Problem List Items Addressed This Visit Encounter for preventive care - Primary See HPI Relevant Medications zoster vaccine-recombinant adjuvanted (Shingrix) 50 MCG/0.5ML vaccine Tuberculosis screening Relevant Orders T-SPOT??.TB Other Visit Diagnoses Screening for colon cancer Relevant Orders Cologuard?? colon cancer screening Encounter for immunization Relevant Orders TDAP VACCINE 7 yrs + (Completed) PCV-20 VACCINE 6 wks + (Completed) documented in this encounter Miscellaneous Notes * Assessment & Plan Note - Ivonne Schwarz MD - 11/07/2024 10:51 AM EDT Associated Problem(s): Encounter for preventive care See HPI documented in this encounter Plan of Treatment Scheduled Orders Name Type Priority Associated Diagnoses Orde r Schedule T-SPOT??.TB Lab Routine Tuberculosis screening Expected: 11/07/2024 (Approximate), Expires: 11/07/2025 Cologuard?? colon cancer screening Lab Routine Screening for colon cancer Ordered: 11/07/2024 documented as of this encounter Visit Diagnoses Diagnosis Encounter for preventive care- Primary Tuberculosis screening Screening examination for pulmonary tuberculosis Screening for colon cancer Special screening for malignant neoplasms, colon Encounter for immunization documented in this encounter Additional Health Concerns Assessment Noted Time PHQ-9 Depression Total Score: 0 11/08/19 25 9:50 AM EDT documented as of this encounter Care Teams Per Diem Clerk Relationship Specialty Start Date End Date Jackelin Almeida DO [address] [place] [address] PCP - General Family Medicine 05/28/23 documented as of this encounter
--- OUTSIDE RECORDS SUMMARY | 2024-11-07 12:28 | XMS_ITS | Clinical Summary ---
Author Organization [employer] Address [address] [facility] 7t [place] [address] Care Team Providers Care Electron Beam Welder Setter Name Role Phone BanJackelin chavez DO Primary Care Provider + [phone] Allergies No known active allergies Medications albuterol 108 (90 Base) MCG/ACT inhaler Inhale 2 puffs every 4 (four) hours if needed. 02/08/2020 Active Elastic Bandages & Supports (Wrist Splint/Cock-Up/ Left L) misc use nightly as directed-RIG HT 2019 Active Elastic Bandages & Supports (Wrist Splint/Elastic Right Med) misc use nightly as directed-LEF T 2019 Active ferrous gluconate (Fergon) 324 (37.5 Fe) MG tablet Take 1 tablet (324 mg) by mouth with breakfast. 90 tablet 1 04/02/2023 Active cholecalciferol (Vitamin D-3) 50 MCG (2000 UT) capsule Take 1 capsule (50 mcg) by mouth in the morning. 30 capsule 11 04/22/2023 Active zoster vaccine-recombi nant adjuvanted (Shingrix) 50 MCG/0.5ML vaccineIndicati ons:Encounter for preventive care Inject 0.5 mL (50 mcg) into the muscle 1 (one) time for 1 dose. 0.5 mL 11/07/2024 11/08/19 25 Active nitrofurantoin, macrocrystal-mo nohydrate, (Macrobid) 100 MG capsule Take 1 capsule (100 mg) by mouth 2 times daily for 5 days. 10 capsule 10/24/2024 10/30/19 25 Active Problems Problem Noted Date Diagnosed Date Encounter for preventive care 11/07/2024 Assessment & Plan (11/07/2024 10:51 AM EDT): See HPI Tuberculosis screening 11/07/2024 Viral upper respiratory tract infection 01/12/20 24 Anemia 12/04/2015 Vitamin D deficiency 12/04/2015 Encounters Date Type Department Care Team Description 11/07/2024 9:30 AM EDT Office Visit [facility] MEDICINE [address] [place] [phone] Ivonne López MD Encounter for preventive care (Primary Dx); Tuberculosis screening; Screening for colon cancer; Encounter for immunization 11/07/2024 Travel 10/24/2024 11:20 AM EDT Office Visit [facility] [address] [place] [phone] Lico Kwong MD Pelvic pain (Primary Dx); Dysuria; Urinary frequency from Last 3 Months Immunizations Name Administration Dates Next Due MMR 11/26/2010 Pfizer Covid-19 Vaccine 12+ 01/15/2021, Pneumococcal Conjugate PCV 20 11/07/2024 Tdap 11/07/2024,11/26/2010 Social History Tobacco Use Types Packs/Day Years [...] Orientation Straight 06/08/2022 10 :18 AM EDT Last Filed Vital Signs Vital Sign Reading [...] Mass Index 23.93 11/07/2024 9:44 AM EDT Plan of Treatment Health Maintenance Due Date Last Done Comments CT Colonography 1974 Colonoscopy 1974 Colorectal Cancer Screening 1974 FIT DNA/Cologuard 1974 FIT 1974 FOBT 1974 HIV Screening 1974 Sigmoidoscopy 1974 Alcohol/Substance Use Screening 1986 Family Planning (PISQ) 1989 Hepatitis C Screening 1992 Hepatitis B Vaccines (1 of 3 - 19+ 3-dose series) 1993 Pap Smear 1995 Cervical Cancer Screening 05/29/2021 HPV/Cotest 05/29/2021 05/29/2016 COVID-19 Vaccine ( season) 2024 01/15/2021, 12/25/2020 Influenza Vaccine (#1) 2024 Zoster Vaccines (1 of 2) 2024 Diagnostic Breast Imaging 01/25/20252023, 12/10/2023, 06/11/2023 Mammogram 07/27/2025 07/27/2024, 05/0 10/2023, 06/11/2023, Additional history exists Depression Screening 11/07/2025 11/07/2024, 11/08/19 SDOH Screening 11/07/2025 11/07/2024 Tobacco Screening 11/07/2025 11/07/2024 DTaP/Tdap/Td Vaccines (3 - Td or Tdap) 11/07/2034 11/07/2024, 11/26/2010 RSV Patients and Patients Aged 60 years or older (1 - 1-dose 75+ series) 2049 Pneumococcal Vaccine: 50+ Years Completed 11/07/2024 HIB Vaccines Aged Out No longer eligi ble based on patient's age to complete this topic HPV Vaccines Aged Out No longer eligi ble based on patient's age to complete this topic Hepatitis A Vaccines Aged Out No long er eligible based on patient's age to complete this topic IPV Vaccines Aged Out No longer eligi ble based on patient's age to complete this topic Meningococcal Vaccine Aged Out No dioni mildred eligible based on patient's age to complete this topic RSV under 20 months Aged Out No longe r eligible based on patient's age to complete this topic Rotavirus Vaccines Aged Out No longer eligible based on patient's age to complete this topic Procedures Procedure Name Priority Date/Time Associated Diagnosis Comments BACTERIAL VAGINOSIS PANEL Routine 10/24/2024 11:42 AM EDT Pelvic pain URINALYSIS, COMPLETE, WITH REFLEX TO CULTURE Routine 10/24/2024 11:37 AM EDT Pelvic pain Dysuria POCT URINALYSIS DIPSTICK Routine 10/24/2024 11:28 AM EDT Pelvic pain POCT , URINE Routine 10/24/2024 11:28 AM EDT Pelvic pain BI MAMMOGRAM DIAGNOSTIC TOMOSYNTHESIS BILATERAL Routine 07/27/2024 1:40 PM EST ZZZ HISTORICAL HPV E6/E7 RFLX VICKY 16 18/45 Routine 05/29/2016 9:00 AM EDT from Last 3 Months or Most Recently Relevant to Health Maintenance Results * Bacterial Vaginosis (10/24/2024 11:42 AM EDT) TRICHOMONAS VAGINALIS DETECTION BY PCR NOT DETECTED Not Detect [facility] BACTERIAL VAGINOSIS DETECTION BY PCR NEGATIVE Negative [facility] Comment:The BV organism targ ets of the Xpert Xpress MVP test can becommensal in women; Xpert Xpress MVP positive results forbacterial vaginosis should be considered in conjunction withother clinical and patient information to determine thedisease status. Organisms that are not detected by the XpertXpress MVP test have also been reported to be associatedwith BV and aerobic vaginitis.The Xpert Xpress MVP test performance has not been evaluatedin patients under the age of 14. SHILOH GROUP DETECTION BY PCR NOT DETECTED Not Detect [facility] Shiloh glab krusei PCR NOT DETECTED Not Detect [facility] Swab Vaginal structure / Unknown 10/24/2024 11:42 AM EDT 10/24/2024 4:18 PM EDT us Lico Kwong MD LAB MICROBIOLOGY - GENERAL ORDER EVELYN Final Result [facility] [address] [place] [phone] * Urinalysis, Complete, with Reflex to Culture (10/24/2024 11:37 AM EDT) Color Urine Yellow [facility] Appearance Urine Clear [facility] PH 5.5 5.0 - 9.0 [facility] Glucose Urine UA Negative Negative mg/dL [facility] Urine Blood Negative Negative [facility] Specific [place] - Urine 1.010 1.005 - 1.025 [facility] Urine Protein Negative Neg-Trace mg/dL [facility] Urine Ketones Negative Negative mg/dL [facility] Nitrite Urine Negative Negative [facility] Leukocyte Esterase Urine Negative Negative [facility] RBC Urine 0-2 0 - 2 /HPF [facility] Urine WBC 0-5 0 - 5 /HPF [facility] Urine Squamous Epithelial Cell 3-5 0 - 2 /HPF [facility] Urine Bacteria Trace None Seen [facility] Hyaline Casts, Urine 0-2 0 - 2 /LPF [facility] Urine 10/24/2024 11:3 7 AM EDT 10/24/2024 4:18 PM EDT Narrative [facility] - 10/24/2024 5:28 PM EDT Urine, Clean Catch us Lico Kwong MD LAB URINE ORDERABLES Final Resul t [facility] [address] [place] [phone] * POCT , urine manually resulted (10/24/2024 11:28 AM EDT) Preg Test, Ur Negative Negative, Indeterminate, None Detected, Invalid, Specimen unsatisfactory for evaluation, Weakly Positive Urine 10/24/2024 11:2 8 AM EDT us Lico Kwong MD POINT OF CARE TEST ENTER/EDIT OR DERABLES Final Result * (ABNORMAL) POCT urinalysis dipstick manually resulted (10/24/2024 11:28 AM EDT) Color, UA Yellow Clarity, UA Clear Glucose, UA Negative Bilirubin, UA Negative Ketones, UA Negative Spec Grav, UA 1.015 Blood, UA Positive(A) Negative, None Detected Comment:trace pH, UA 6.0 Protein, UA Negative Urobilinogen, UA 0.2 Leukocytes, UA Negative Negative, Rare, Trace Nitrite, UA Negative Negative, None Detected Appearance, UA OK Urine 10/24/2024 11:2 8 AM EDT us Lico Kwong MD POINT OF CARE TEST ENTER/EDIT OR DERABLES Final Result * BI Mammogram Diagnostic Tomosynthesis Bilateral (07/27/2024 1:40 PM EST) Anatomical Region Laterality Modality Breast Bilateral Mammography 07/27/2024 1:40 PM EST Narrative 07/27/2024 2:35 PM EST ? [facility] ? [address] ?[place] [address] ? Mammography Report ? Signed ? Patient: Porrata,Isaiah ?MR#: [id number] ?? [id number] ? : 1975 ?Acct:[id number] ? Age/Sex: 49 / F ?ADM Date: 07/27/24 ? Loc: HO.MAMMO ? Attending Prosper Almeida DO ? Ordering Physician: Santo Chavez MD ?Results: 3.12MP ?? robably Benign Finding - 12 month F/U Suggested ? Date of Service: 07/27/24 ?Follow Up: 12 month diagnos ?? tic follow up ? Procedure(s): MM tomosynthesis diagnostic BI ?? Accession Number(s): [id number] ? cc: Jackelin Almeida DO; Santo Chavez MD ? EXAMINATION: ?? MM DIAGNOSTIC DIGITAL BREAST TOMOSYNTHESIS, BILATERAL ? CLINICAL INFORMATION: ? History of left breast wax epithelial atypia from biopsy of ?? calcifications status post excisional biopsy. ?? Follow-up for left breast upper outer calcifications which are faint ?? from diagnostic imaging dating back to May 2023. ? COMPARISON: ?? Mammography: Comparison is made with relevant prior exams. ? TECHNIQUE: ?? Digital breast mammography with tomosynthesis is performed in both the ?? craniocaudal and mediolateral oblique views along with computer-aided ?? detection (CAD). ? FINDINGS: ?? The breasts are extremely dense, which lowers the sensitivity of ?? mammography (ACR BI-RADS breast composition Category d). ?? Faint scattered grouped calcifications in the upper outer quadrant are ?? not significantly changed from prior. Excisional biopsy changes. ?? There are no significant masses, abnormal calcifications, or other ?? abnormalities. ? Results are provided to the patient at time of visit by the ?? technologist. ? MM/MM tomosynthesis diagnostic BI ?? IMPRESSION: ?? Right: ?? Negative. ?? Left: Status post excisional biopsy changes. ?? Faint calcifications which are scattered and grouped right upper outer ?? quadrant are not significantly changed from prior magnification views ?? dating back to June 2023 recommend one year follow up diagnostic ?? mammogram with (dictation views to demonstrate 2 years of stability. ? ASSESSMENT: ? BI-RADS BI-RADS 3 - Probably benign finding(s) - 12 month follow-up ?? suggested ? RECOMMENDATION: ?? 12 month diagnostic follow up ? This patient's information was entered into a reminder system with a ?? target due date for their next mammogram. ? Electronically signed by: ??Martha Sales DO ??07/27/2024 02:32 PM EST ?? RP ? Dictated By: ?Martha Sales DO ? Signed By: ?<Electronically signed by Martha Sales, DO in OV> ? 07/27/24 1432 ? DD/ 1340 ? TD/TT: 07/27/24 1421 ? Paper Novelty Maker: ? Procedure Note Donotuseinterpreter, Image - [facility] [address] [place], [place] [address] Mammography Report Signed Patient: Steffanie Haq#: [id number] : 1975Acct:[id number] Age/Sex: 49 / FADM Date: 07/27/24 Loc: HO.MAMMO Attending Dr: Jackelin Almeida DO Ordering Physician: Santo Chavez MDResults: 3.12MP robably Benign Finding - 12 month F/U Suggested Date of Service: 07/27/24Follow Up: 12 month diagnos tic follow up Procedure(s): MM tomosynthesis diagnostic BI Accession Number(s): [id number] cc: Jackelin Almeida DO; Santo Chavez MD EXAMINATION: MM DIAGNOSTIC DIGITAL BREAST TOMOSYNTHESIS, BILATERAL CLINICAL INFORMATION: History of left breast wax epithelial atypia from biopsy of calcifications status post excisional biopsy. Follow-up for left breast upper outer calcifications which are faint from diagnostic imaging dating back to May 2023. COMPARISON: Mammography: Comparison is made with relevant prior exams. TECHNIQUE: Digital breast mammography with tomosynthesis is performed in both the craniocaudal and mediolateral oblique views along with computer-aided detection (CAD). FINDINGS: The breasts are extremely dense, which lowers the sensitivity of mammography (ACR BI-RADS breast composition Category d). Faint scattered grouped calcifications in the upper outer quadrant are not significantly changed from prior. Excisional biopsy changes. There are no significant masses, abnormal calcifications, or other abnormalities. Results are provided to the patient at time of visit by the technologist. MM/MM tomosynthesis diagnostic BI IMPRESSION: Right: Negative. Left: Status post excisional biopsy changes. Faint calcifications which are scattered and grouped right upper outer quadrant are not significantly changed from prior magnification views dating back to June 2023 recommend one year follow up diagnostic mammogram with (dictation views to demonstrate 2 years of stability. ASSESSMENT: BI-RADS BI-RADS 3 - Probably benign finding(s) - 12 month follow-up suggested RECOMMENDATION: 12 month diagnostic follow up This patient's information was entered into a reminder system with a target due date for their next mammogram. Electronically signed by: Martha Sales DO 07/27/2024 02:32 PM EST Dictated By: Martha Sales DO Signed By: <Electronically signed by Martha Sales DO in OV> 07/27/24 1432 DD/ 1340 TD/TT: 07/27/24 1421 Paper Novelty Maker: [facility] External Provider IMG BI PROCEDURES Final Result * (ABNORMAL) HPV E6/E7 RFLX VICKY 16 18/45 (05/29/2016 9:00 AM EDT) ADDITIONAL TESTING Has been added. () [facility] Comment: Test Performed by [facility], [address] [place] [address] Reagan Solomon M.D., Ph.D., Director of Laboratories , CLIA [id number] HPV 16 RNA NOT DETECTED NOT DETECTED [facility] HPV 18/45 RNA NOT DETECTED NOT DETECTED [facility] Comment: Although HPV Genotypes 16 or 18/45 were Not Detected in this patient's sample, the patient may still be at risk for disease that could progress to high-grade cervical intraepithelial neoplasia or cervical cancer. HPV Genotypes 16 and 18/45 only account for 80% of the cases of invasive cervical cancer worldwide. There are multiple other types of HPV associated with a High Risk for the progression to cervical cancer. Therefore, it is important to correlate the HPV Genotype results for this patient with the results of cytologic examination or other diagnostic findings. This test was performed using the APTIMA HPV 16, 18/45 genotype assay ([employer] The assay can differentiate HPV 16 from HPV 18 and/or HPV 45, but does not differentiate between HPV 18 and HPV 45. Test Performed by geol[employer]ir[facility] L[facility] D[facility], [address] [place], [place] Reagan Solomon M.D., Ph.D., Director of Laboratories , CLIA [id number] HPV mRNA E6/E7 DETECTED(AA ) NOT DETECTED [facility] Comment: This assay detects E6/E7 viral messenger RNA (mRNA) from 14 high-risk HPV types (16,18,31,33,35,39,45,51, 52,56,58,59,66,68). This test was performed using the APTIMA(R) TMA HPV Assay ([employer] For additional information, please refer to http://Parkya.Cool Lumens/faq/APG098l4 Please note: ??Effective 04/20/2016, HPV testing will be performed using Tre[employer]'s APTIMA test which targets mRNA. Detecting mRNA instead of DNA, as in older methods, offers significant improvements in specificity. 05/29/2016 9:00 AM EDT us Jackelin Almeida DO HISTORICAL/NON ORDERABLE LAB S Final Result [facility] [address] from Last 3 Months or Most Recently Relevant to Health Maintenance Insurance [facility] Care Teams Electron Beam Welder Setter Relationship Specialty Start Date End Date Jackelin Almeida DO [address] [place] [phone] PCP - General Family Medicine 05/28/23
--- OUTSIDE RECORDS SUMMARY | 2024-11-07 12:28 | XMS_ITS | Encounter Summary ---
Author Organization [employer] Address [address] [facility] 7t [place] [address] Care Team Providers Care Lead Systems Engineer Name Role Phone Jackelin Almeida DO Primary Care Provider [phone] Reason for Visit * Reason Onset Date Comments Reschedule 09/03/2023 Encounter Details Date Type Department Care Team ([facility] st Contact Info) Description 09/03/2023 Telephone [facility] MEDICINE [address] [place], [place] [phone] Jackelin Almeida DO [address] [place] [address] Reschedule Social History Tobacco Use Types Packs/Day Years Used Date Smoking Tobacco: Never Smokeless Tobacco: Never Depression Answer Date Recorded Patient Health Questionnaire-9 Score 0 04/22/2023 Housing Stability Answer Date Recorded What is your housing situation today? I have jorge luis foster 05/28/[address] you li ve. Do you have problems with any of the following? None of the above 05/28/2023 Food Insecurity Answer Date Recorded Within the past 12 months, y ou worried that your food would run out before you got money to buy more: Never True 05/28/2023 Within the past 12 months,th e food you bought just didn't last and you didn't have enough money to get more: Never True Transportation Answer Date Recorded In the past 12 months, has l ack of transportation kept you from medical appts, meetings, work or from getting things needed for daily living? No 05/28/2023 Utilities Answer Date Recorded In the past 12 months, has t he electric, gas, oil or water company threatened to shut off services in your home? No 05/28/2023 Depression Answer Date Recorded Patient Health Questionnaire-2 Score 0 04/22/2023 Comments Unknown Sex and Gender Information Value Date Recorded Sex Assigned at Female 06/08/2022 10:18 AM EDT Legal Sex Female 10:18 AM EDT Gender Identity Female 04/02/2023 9:08 AM EDT Sexual Orientation Straight 06/08/2022 10 :18 AM EDT documented as of this encounter Miscellaneous Notes * Telephone Encounter - Isha Rose - 09/03/2023 9:39 AM EST Tc from pt requesting to r/s 09/03 OV appointment. Please contact pt at [phone] documented in this encounter Plan of Treatment Not on file documented as of this encounter Visit Diagnoses Not on filedocumented in this encounter Additional Health Concerns Assessment Noted Time PHQ-9 Depression Total Score: 0 04/22/20 11:42 AM EDT documented as of this encounter Care Teams Lead Systems Engineer Relationship Specialty Start Date End Date Jackelin Almeida DO [address] [place] [phone] PCP - General Family Medicine 05/28/23 documented as of this encounter
--- OUTSIDE RECORDS SUMMARY | 2024-11-07 12:28 | XMS_ITS | Encounter Summary ---
Author Organization [employer] Address [address] [place] [address] 7 [place] [address] Care Team Providers Care Health Education Coordinator Name Role Phone Jackelin Almeida DO Primary Care Provider [phone] Reason for Visit * Reason Onset Date Comments New Patient 05/04/2023 Encounter Details Date Type Department Care Team (Late st Contact Info) Description 05/04/2023 Telephone [facility] MEDICINE [address] [place] [address] Glynn Russo MD [address] [place] [address] New Patient Social History Tobacco Use Types Packs/Day Years Used Date Smoking Tobacco: Never Smokeless Tobacco: Never Depression Answer Date Recorded Patient Health Questionnaire-9 Score 0 04/22/2023 Depression Answer Date Recorded Patient Health Questionnaire-2 Score 0 04/22/2023 Comments Unknown Sex and Gender Information Value Date Recorded Sex Assigned at Female 06/08/2022 10:18 AM EDT Legal Sex Female 10:18 AM EDT Gender Identity Female 04/02/2023 9:08 AM EDT Sexual Orientation Straight 06/08/2022 10 :18 AM EDT documented as of this encounter Miscellaneous Notes * Telephone Encounter - Miesha Callejas - 05/04/2023 2:04 PM EDT 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 EFFECTIVE SINCE 03/29/2023 documented in this encounter Plan of Treatment Not on file documented as of this encounter Visit Diagnoses Not on filedocumented in this encounter Additional Health Concerns Assessment Noted Time PHQ-9 Depression Total Score: 0 04/22/20 11:42 AM EDT documented as of this encounter Care Teams Health Education Coordinator Relationship Specialty Start Date End Date Jackelin Almeida DO [address] [place] [address] PCP - General Family Medicine 05/28/23 documented as of this encounter
--- OUTSIDE RECORDS SUMMARY | 2024-11-07 12:28 | XMS_ITS | Encounter Summary ---
Author Organization [employer] Address [address] [facility] 7t [place] [address] Care Team Providers Care Risk Engineer Name Role Phone Jackelin Almeida DO Primary Care Provider [phone] Jackelin Almeida DO Primary Care Provider [phone] Encounter Details Date Type Department Care Team (Late st Contact Info) Description 04/05/2023 Orders Only [facility] MEDICINE [address] [place], [place] [phone] Tamera Chatterjee MD [address] [place], [place] [phone] Anemia, unspecified type (Primary Dx) Social History Tobacco Use Types Packs/Day Years Used Date Smoking Tobacco: Never Smokeless Tobacco: Never Comments Unknown Sex and Gender Information Value Date Recorded Sex Assigned at Female 06/08/2022 10:18 AM EDT Legal Sex Female 10:18 AM EDT Gender Identity Female 04/02/2023 9:08 AM EDT Sexual Orientation Straight 06/08/2022 10 :18 AM EDT documented as of this encounter Plan of Treatment Not on file documented as of this encounter Procedures Procedure Name Priority Date/Time Associated Diagnosis Comments FERRITIN Routine 04/20/2023 8:43 AM EDT Anemia, unspecified type documented in this encounter Results * Ferritin (04/20/2023 8:43 AM EDT) Ferritin 15 10 - 250 ng/mL [facility] Blood Venous blood specimen / Unknown 04/20/2023 8:43 AM EDT 04/20/2023 11:10 AM EDT Tamera Chatterjee MD LAB BLOOD ORDERABLES Final Result [facility] [address] [place] [phone] documented in this encounter Visit Diagnoses Diagnosis Anemia, unspecified type- Primary documented in this encounter Care Teams Risk Engineer Relationship Specialty Start Date End Date Jackelin Almeida DO [address] [place] [address] PCP - General Family Medicine 08/09/18 05/03/23 Jackelin Almeida DO [address] [place] [address] PCP - General Family Medicine 05/28/23 documented as of this encounter
--- OUTSIDE RECORDS SUMMARY | 2024-11-07 12:28 | XMS_ITS | Encounter Summary ---
Author Organization [employer] Address [address] [facility] 7t [place] [address] Care Team Providers Care Plastic Parts Designer Name Role Phone BanJackelin chavez DO Primary Care Provider + [phone] Encounter Details Date Type Department Care Team (Latest Contact Info) Description 11/07/2024 Travel Social History Tobacco Use Types Packs/Day Years [...] Time PHQ-9 Depression Total Score: 0 11/08/19 9:50 AM EDT documented as of this encounter Care Teams Plastic Parts Designer Relationship Specialty Start Date End Date Jackelin Almeida DO [address] [place] [phone] PCP - General Family Medicine 05/28/23 documented as of this encounter
[2024-11-10 17:43] LABS: TS Negative Control Passed; TS Panel A 0; TS Panel B 0; TS Positive Control Passed; TSpotTB Negative (Negative)
== END 2024-11-07 10:33 | disposition home or self-care (01) ==
LOC: HO.HHCL 10:32
PROVIDERS: Visit Provider Internal Medicine
DX: Z11.1 Encounter for screening for respiratory tuberculosis (principal)
CPT/HCPCS: 36415; 86481